=== PATIENT | female | born 2000 | race Two or more races ===

== ENCOUNTER 2019-06-26 03:50 | Emergency (ER) | payer MEDICAID, OTHER ==
[~2019-06-26] VITALS: Ht 160 cm; Wt 63.0 kg
[2019-06-26 05:16] LABS: Urine Bacteria MANY /hpf (None Seen); Urine Blood Negative /uL (Negative); Urine Mucus FEW (None Seen); Urine Specific Gravity 1.018 (1.001-1.035); Urine WBC 13 /hpf (0 - 5)
[2019-06-26 05:18] LABS: Urine Pregnacy Test Negative (Negative)
[2019-06-26 05:32] LABS: Alcohol, Urine < 3.0 mg/dL (0-5); Amphetamine Screen, Urine POSITIVE (NEGATIVE); Barbiturate Scree,Urine NEGATIVE (NEGATIVE); Benzodiazephine Screen, Urine NEGATIVE (NEGATIVE); Cannabinoid Screen, Urine NEGATIVE (NEGATIVE); Cocaine Screen, Urine NEGATIVE (NEGATIVE)
[2019-06-26 05:38] LABS: Opiate Scree,Urine NEGATIVE (NEGATIVE); Phencyclidine Screen, Urine NEGATIVE (NEGATIVE)
[2019-06-26 07:40] VITALS: BP 128/88
[2019-06-26 08:10] LABS: Basophils # (auto) 0 uL; Basophils % (auto) 0.5 % (0.0-2.0); Eosinophils # (auto) 0.5 uL; Eosinophils % (auto) 7.5 % (0.0-7.0); Hematocrit 40.4 % (36.0-46.0); Hemoglobin 13.6 g/dL (12.2-16.2); Lymphocytes % (auto) 29.5 % (10.0-50.0); Mean Corpuscular Hemoglobin 28.9 pg (28.0-32.0); Mean Corpuscular Hgb Conc. 33.7 g/dL (32.0-36.0); Mean Corpuscular Volume 85.8 fL (80.0-100.0); Monocytes # (auto) 0.9 uL; Monocytes % (auto) 13.3 % (0.0-12.0); Neutrophils # (auto) 3.4 uL; Neutrophils % (auto) 49.2 % (37.0-80.0); Platelet Count (auto) 242 10^3/uL (140-450); Red Blood Cells 4.71 10^6/uL (4.0-5.20); Red Cell Distribution Width 13.1 % (11.8-14.3); White Blood Cell 6.9 10^3/uL (4.4-10.8)
[2019-06-26 08:28] LABS: Calcium 8.5 mg/dL (8.5-10.1); Potassium 3.3 mmol/L (3.5-5.1)
[2019-06-26 08:33] LABS: BUN/Creatinine Ratio 11.9; Bilirubin, Total 0.3 mg/dL (0.2-1.0); Total Protein 7.6 g/dL (6.4-8.2)
[2019-06-26] MEDS ORDERED: POTASSIUM EFFERVESENT TAB 25 MEQ PO ONE (09:15)
== END 2019-06-26 09:30 | disposition home or self-care (01) ==
LOC: ER 03:57
DX: M54.5 Low back pain (principal); F15.29 Other stimulant dependence with unspecified stimulant-induced disorder; N39.0 Urinary tract infection, site not specified; E87.6 Hypokalemia; J45.909 Unspecified asthma, uncomplicated; F17.210 Nicotine dependence, cigarettes, uncomplicated
CPT/HCPCS: 36415; 80053; 80307; 81001; 81025; 85025; 85652

== ENCOUNTER 2019-11-01 16:41 | Emergency (ER) | payer MEDICAID, OTHER ==
[~2019-11-01] VITALS: Ht 160 cm; Wt 63.5 kg
[2019-11-01 16:45] VITALS: BP 140/75
[2019-11-01] MEDS ORDERED: IPRATROPIUM BROM 0.5 MG/2.5ML INH SOL NEB ONE (16:45)
[2019-11-01] MEDS ORDERED: ALBUTEROL SULF 2.5 MG/0.5ML(0.5%) NEB SOLN NEB ONE (16:45)
[2019-11-01] MEDS ORDERED: methylPREDNISolone SOD SUCC 125 MG/2 ML VL IM ONE (17:15)
== END 2019-11-01 17:52 | disposition home or self-care (01) ==
LOC: ER 16:41
DX: J45.901 Unspecified asthma with (acute) exacerbation (principal); F17.210 Nicotine dependence, cigarettes, uncomplicated
CPT/HCPCS: 94640; 96372; 99283; J2930; J7644

== ENCOUNTER 2020-06-14 13:17 | Emergency (ER) | payer MEDICAID, OTHER ==
[~2020-06-14] VITALS: Ht 160 cm; Wt 83.9 kg
[2020-06-14 13:43] VITALS: BP 112/61
== END 2020-06-14 16:59 | disposition home or self-care (01) ==
LOC: ER 13:17
DX: Z34.91 Encounter for supervision of normal pregnancy, unspecified, first trimester (principal); F17.210 Nicotine dependence, cigarettes, uncomplicated; Z3A.10 10 weeks gestation of pregnancy
CPT/HCPCS: 36415; 76801; 84702